=== PATIENT | male | born 1995 | race Caucasian/White ===

== ENCOUNTER 2023-03-09 10:43 | Emergency (ER) | payer MEDICAID, SELFPAY ==
--- NOTE | 2023-03-09 11:58 | ED_ITS ---
HPI - General Adult General Chief complaint: General Medical Stated complaint: bit tongue ? infected Time Seen by Provider: 03/09/23 12:00 Source: patient Mode of arrival: ambulatory Limitations: no limitations History of Present Illness HPI narrative: 27 yo male with history of asthma here with complaints of concern for infected tongue. Patient reports he bit his tongue 2 days ago and now it is swollen, painful and patient is concerned it may be infected. No fevers, chills. Related Data Allergies Allergy/AdvReac Type Severity Reaction Status Date / Time No Known Allergies Allergy Verified 03/09/23 11:55 Review of Systems Review of Systems: Yes all other systems are reviewed and are negative Constitutional: Constitutional: Reports no additional constitutional complaints, Denies body ache(s), Denies chills, Denies fever(s), Denies headache(s) and Denies weakness Eyes: Eyes: Reports no additional eye complaints and Denies change in vision ENT: Reports system reviewed and no additional complaints, except as documented, Denies dizziness, Denies headache(s), Denies nasal congestion, Denies nasal discharge and Denies neck pain Cardiovascular: Cardiovascular: Reports no additional cardiovascular complaints, Denies chest pain, Denies leg edema and Denies dyspnea Respiratory: Respiratory: Reports no additional respiratory complaints, Denies cough and Denies dyspnea Gastrointestinal: Gastrointestinal: Reports no additional gastrointestinal complaints, Denies abdominal pain, Denies diarrhea, Denies nausea and Denies vomiting Genitourinary: Genitourinary: Denies urinary incontinence Musculoskeletal: Musculoskeletal: Reports no additional musculoskeletal complaints, Denies back pain, Denies arthralgias, Denies joint swelling, Denies neck pain, Denies numbness and Denies tingling Integumentary/Breasts: Skin/Breast: Reports system reviewed and no additional complaints, except as docu and Denies rash Neurologic: Reports system reviewed and no additional complaints, except as documented, Denies dizziness, Denies headache(s), Denies numbness, Denies tingling and Denies weakness PMFSH Past Medical History Attestation statement: The following information was validated with the patient. Source: old records reviewed and nursing notes reviewed Social History Social History Advance Directives: No Advance Directives Information Provided: No Physical Exam ED Vital Signs: Vital Signs - 24 hr 03/09/23 12:02 Temperature 98.0 F Pulse Rate 69 Respiratory Rate 16 Blood Pressure 112/76 Pulse Oximetry 96 Oxygen Delivery Method Room Air BMI result Body Mass Index 21.0 Const General: cooperative, healthy appearing, comfortable and no acute distress Orientation/consciousness: patient oriented x3 Limitations: no limitations HENMT Head: Yes normal to inspection Ears: hearing grossly normal bilaterally Mouth/tongue images: 1. +abrasion-no surrounding erythema, drainage, fluctuance or abscess Throat: Yes posterior oropharynx normal, Yes tonsils normal and Yes uvula midli ne Eyes General: appearance normal, both eyes and all related structures Pupils: Equal, round and reactive pupils present Neck Neck: Yes normal visual inspection Chest Chest palpation & inspection: normal inspection of the chest Resp Effort & Inspection: normal respiratory effort Cardio Rate: regular rate Rhythm: regular rhythm Peripheral pulses: Peripheral pulses 2+ throughout GI Inspection: Yes normal to inspection Skin General skin exam: no rashes or lesions noted Neuro General: patient oriented x3 and moves all extremities Cranial nerves: Yes Equal, round and reactive pupils present Cognition (Neuro): normal cognition Gait exam (Neuro): Normal gait present Extrem General: Yes normal to inspection Medical Decision Making Medical Decision Making MDM Narrative: 27 yo male with history of asthma here with complaints of concern for infected tongue. Patient reports he bit his tongue 2 days ago and now it is swollen, painful and patient is concerned it may be infected. No fevers, chills. No s/s of infection on exam. Small abrasion noted to right lateral tongue Recommend salt water gargles, motrin/tylenol, soft food Differential Diagnosis Differential Diagnoses: The differential diagnosis associated with the presentation includes abrasion no evidence of infected wound Prescription Management I considered prescription management with: Antibiotic no s/s of infection necessitating antibiotics Discharge Plan Discharge Clinical Impression: Abrasion of tongue Patient Disposition: Home, Self-Care Instructions: Abrasion (ED) Additional Instructions: Salt water gargles Soft foods, luke warm foods Motrin or tylenol for pain as needed Referrals: Physician,Maury J [Primary Care Provider] - Interventions: ED Discharge Assessment Last Done: 03/09/23 12:10
[2023-03-09 12:02] VITALS: BP 112/76; PULSE 69; RESP 16; TEMP 36.7; O2SAT 96; BMI 21.0
== END 2023-03-09 12:57 | disposition home or self-care (01) ==
LOC: HO.ED 12:12
PROVIDERS: Emergency Provider Emergency Medicine
DX: S00.512A Abrasion of oral cavity, initial encounter (principal); X58.XXXA Exposure to other specified factors, initial encounter; Y93.9 Activity, unspecified; Y92.9 Unspecified place or not applicable; Y99.9 Unspecified external cause status
CPT/HCPCS: 99282